=== PATIENT | female | born 1965 | race Caucasian/White ===

== ENCOUNTER 2018-03-26 08:56 | Observation (INO) | payer BC ==
[2018-03-26] MEDS ORDERED: NITROGLYCERIN (SL) 0.4 MG TAB SL ×2 (09:30→14:30)
[2018-03-26] MEDS: NITROGLYCERIN 2% 1 GM OINT PKT TD (09:33)
[2018-03-26 10:02] LABS: ADD MAN DIFF? NO
[2018-03-26 10:07] LABS: WHITE BLOOD COUNT 7.2 10^3/ul (4.8-10.8)
[2018-03-26 10:07] LABS: BASOPHIL # 0.1 10^3/ul (0.0-0.1); BASOPHILS % 0.7 % (0.0-2.0); EOSINOPHILS # 0.2 10^3/ul (0.0-0.5); EOSINOPHILS % 2.9 % (0.0-7.0); HEMATOCRIT 39.6 % (37.0-47.0); HEMOGLOBIN 12.9 g/dl (12.0-16.0); LYMPHOCYTES # 1.4 10^3/ul (0.8-2.9); LYMPHOCYTES % 19.4 % (15.0-51.0); MEAN CORPUSCULAR HEMOGLOBIN 26.8 pg (29.0-33.0); MEAN CORPUSCULAR HGB CONC 32.6 g/dl (32.0-37.0); MEAN CORPUSCULAR VOLUME 82.3 fl (82.0-101.0); MEAN PLATELET VOLUME 8.3 fl (7.4-10.4); MONOCYTE # 0.4 10^3/ul (0.3-0.9); MONOCYTES % 5.7 % (0.0-11.0); NEUTROPHIL # 5.1 10^3/ul (1.6-7.5); NEUTROPHILS % 70.9 % (39.0-77.0); PLATELET COUNT 356 10^3/UL (140-415); RED BLOOD COUNT 4.81 10^6/ul (4.20-5.40); RED CELL DISTRIBUTION WIDTH 13.2 % (11.5-14.5)
[2018-03-26 10:22] LABS: ANION GAP 16 (8-16); BLOOD UREA NITROGEN 13 mg/dl (7-20); CALCIUM 9.4 mg/dl (8.4-10.2); CARBON DIOXIDE 26 mmol/L (21-31); CHLORIDE 107 mmol/L (97-110); CREATININE 0.63 mg/dl (0.44-1.00); GLUCOSE 104 mg/dl (70-220); POTASSIUM 4.2 mmol/L (3.5-5.1); SODIUM 145 mmol/L (135-144)
[2018-03-26 10:35] LABS: TROPONIN-I < 0.012 ng/ml (0.000-0.120)
[2018-03-26] MEDS ORDERED: ACETAMINOPHEN 325 MG TAB PO (11:30)
[2018-03-26] MEDS ORDERED: ONDANSETRON 4 MG INJ IV (11:30)
[2018-03-26] MEDS ORDERED: NACL 0.9% 3 ML SYG IV (14:30)
[2018-03-26] MEDS ORDERED: DOCUSATE SODIUM 100 MG CAP PO (14:30)
[2018-03-26 15:56] LABS: CHOLESTEROL 226 mg/dl (100-200)
[2018-03-26 15:56] LABS: CHOL/HDL RATIO 6.1 RATIO; HDL CHOLESTEROL 37 mg/dl (37-92); LDL CHOLESTEROL,CALCULATED 156 mg/dl; TRIGLYCERIDES 167 mg/dl (0-149)
[2018-03-26] MEDS: ACETAMINOPHEN 325 MG TAB PO (18:07)
[2018-03-26 19:33] LABS: TROPONIN-I < 0.012 ng/ml (0.000-0.120)
[2018-03-26] MEDS: IBUPROFEN 400 MG TAB PO (21:04)
[2018-03-26] MEDS: ZOLPIDEM 5 MG TAB PO (21:04)
[2018-03-27] MEDS: ENOXAPARIN 40 MG/0.4 ML SYG SC (08:48)
[2018-03-27] MEDS: ASPIRIN 81 MG TAB PO (08:48)
== END 2018-03-27 15:55 | disposition home or self-care (01) ==
LOC: E/R 08:56 → MS4 11:03
DX: R07.89 Other chest pain (principal); E78.00 Pure hypercholesterolemia, unspecified; G47.00 Insomnia, unspecified; Z82.49 Family history of ischemic heart disease and other diseases of the circulatory system
CPT/HCPCS: 36415; 71045; 80048; 80061; 84484; 85025; 93005; 93350; 99285-25; G0378